=== PATIENT | female | born 1995 | race Caucasian/White ===

== ENCOUNTER 2022-09-01 12:45 | Outpatient (RCR) | payer MEDICAID | END 2022-09-15 | disposition home or self-care (01) | LOC: WSPT | DX: M54.50 Low back pain, unspecified (principal) ==

== ENCOUNTER 2022-10-08 14:04 | Outpatient (RCR) | payer MEDICAID | END 2022-10-08 14:19 | LOC: WSPT 14:04 | DX: M54.50 Low back pain, unspecified (principal) ==

== ENCOUNTER 2022-10-08 14:20 | Outpatient (RCR) | payer MEDICAID | END 2022-10-08 14:21 | disposition home or self-care (01) | LOC: WSPT 14:20 | DX: M54.50 Low back pain, unspecified (principal) ==